=== PATIENT | female | born 1950 | race Caucasian/White ===

== ENCOUNTER 2018-03-09 04:59 | Outpatient (CLI) | payer MEDICARE | END 2018-03-09 23:59 | disposition home or self-care (01) | LOC: DIABETIC 04:59 | PROVIDERS: ATTEND Specialist | DX: E11.9 Type 2 diabetes mellitus without complications (principal) | CPT/HCPCS: G0108 ==

== ENCOUNTER 2018-04-18 01:51 | Outpatient (CLI) | payer MEDICARE | END 2018-04-18 23:59 | disposition home or self-care (01) | LOC: DIABETIC 01:51 | PROVIDERS: ATTEND Specialist | DX: E11.65 Type 2 diabetes mellitus with hyperglycemia (principal) | CPT/HCPCS: G0108 ==

== ENCOUNTER 2018-07-19 02:09 | Outpatient (CLI) | payer MEDICARE | END 2018-07-19 23:59 | disposition home or self-care (01) | LOC: DIABETIC 02:09 | PROVIDERS: ATTEND Specialist | DX: E11.65 Type 2 diabetes mellitus with hyperglycemia (principal); Z79.84 Long term (current) use of oral hypoglycemic drugs; Z79.899 Other long term (current) drug therapy; Z79.4 Long term (current) use of insulin; Z88.0 Allergy status to penicillin | CPT/HCPCS: G0108 ==

== ENCOUNTER 2018-10-04 01:32 | Outpatient (CLI) | payer MEDICARE | END 2018-10-04 23:59 | disposition home or self-care (01) | LOC: DIABETIC 01:32 | PROVIDERS: ATTEND Specialist | DX: E11.65 Type 2 diabetes mellitus with hyperglycemia (principal); Z79.84 Long term (current) use of oral hypoglycemic drugs; Z79.899 Other long term (current) drug therapy; Z79.4 Long term (current) use of insulin; Z88.0 Allergy status to penicillin | CPT/HCPCS: G0108 ==

== ENCOUNTER 2019-01-29 02:20 | Outpatient (CLI) | payer MEDICARE | END 2019-01-29 23:59 | disposition home or self-care (01) | LOC: DIABETIC 02:20 | PROVIDERS: ATTEND Specialist | DX: E11.65 Type 2 diabetes mellitus with hyperglycemia (principal); Z79.84 Long term (current) use of oral hypoglycemic drugs; Z79.899 Other long term (current) drug therapy; Z88.0 Allergy status to penicillin | CPT/HCPCS: G0108 ==

== ENCOUNTER 2019-05-21 04:52 | Outpatient (CLI) | payer MEDICARE, BC | END 2019-05-21 23:59 | disposition home or self-care (01) | LOC: DIABETIC 04:52 | PROVIDERS: ATTEND Specialist | DX: E11.65 Type 2 diabetes mellitus with hyperglycemia (principal); Z79.4 Long term (current) use of insulin; Z79.899 Other long term (current) drug therapy; Z88.0 Allergy status to penicillin | CPT/HCPCS: G0108 ==

== ENCOUNTER 2019-08-22 01:49 | Outpatient (CLI) | payer MEDICARE, BC | END 2019-08-22 23:59 | disposition home or self-care (01) | LOC: DIABETIC 01:49 | PROVIDERS: ATTEND Specialist | DX: E11.69 Type 2 diabetes mellitus with other specified complication (principal) | CPT/HCPCS: G0108 ==

== ENCOUNTER 2019-11-21 01:32 | Outpatient (CLI) | payer MEDICARE, BC | END 2019-11-21 23:59 | disposition home or self-care (01) | LOC: DIABETIC 01:32 | PROVIDERS: ATTEND Specialist | DX: E11.65 Type 2 diabetes mellitus with hyperglycemia (principal); Z79.4 Long term (current) use of insulin | CPT/HCPCS: G0108 ==

== ENCOUNTER 2022-04-08 09:42 | Day surgery (SDC) | payer MEDICARE, BC ==
[2022-04-08] VITALS (9 sets, daily range): BP systolic 120–153; BP diastolic 54–65
[~2022-04-08] VITALS: Ht 162.6 cm; Wt 84.5 kg
[2022-04-08] MEDS ORDERED: normal saline 1,000 ML IV SCH (10:00)
[2022-04-08] MEDS ORDERED: diphenhydrAMINE 25mg capsule PO PRN (10:00)
[2022-04-08] MEDS ORDERED: INSU200I SQ (10:16)
[2022-04-08] MEDS ORDERED: SPIR25TA5 PO (10:16)
[2022-04-08] MEDS ORDERED: ATOR40TA72 PO (10:16)
[2022-04-08] MEDS ORDERED: OMEP20CA16 PO (10:16)
[2022-04-08] MEDS ORDERED: FENO145T25 PO (10:16)
[2022-04-08] MEDS ORDERED: INSU200I4 SQ (10:16)
[2022-04-08] MEDS ORDERED: METF-900 PO (10:16)
[2022-04-08] MEDS ORDERED: BISO1TAB99 PO (10:16)
[2022-04-08] MEDS ORDERED: EZET10TA48 PO (10:16)
[2022-04-08] MEDS ORDERED: EMPA25TA PO (10:16)
[2022-04-08] MEDS ORDERED: MULT-1133 (10:19)
[2022-04-08] MEDS ORDERED: Vitamin D (10:19)
[2022-04-08] MEDS ORDERED: iohexol 350MG/ML 100ml bottle IV ONE (11:00)
[2022-04-08 11:02] LABS: ALBUMIN 4.4 G/DL (3.4-5.0); ANION GAP 12 (8-16); BASOPHILS % (AUTO) 0.3 % (0-1); BLOOD UREA NITROGEN 28 MG/DL (7-18); BUN/CREATININE RATIO 30.4 (6.6-38.0); CALCIUM 9.9 MG/DL (8.5-10.1); CHLORIDE 104 MMOL/L (99-107); CREATININE 0.92 MG/DL (0.40-0.90); EOSINOPHILS # (AUTO) 0.1 X10'3 (0-0.9); EOSINOPHILS % (AUTO) 0.9 % (0-6); GLUCOSE 142 MG/DL (70-104); HEMATOCRIT 46.4 % (35.0-45.0); HEMOGLOBIN 15.6 g/dl (12.0-16.0); LYMPHOCYTES # (AUTO) 2.1 X10'3 (1.1-4.8); LYMPHOCYTES % (AUTO) 24.8 % (21-51); MAGNESIUM 1.8 MG/DL (1.5-2.4); MEAN CORPUSCULAR HEMOGLOBIN 30.9 PG (27.0-31.0); MEAN CORPUSCULAR HGB CONC 33.5 g/dL (33.0-36.5); MEAN CORPUSCULAR VOLUME 92.3 FL (78-98); MONOCYTES # (AUTO) 0.7 X10'3 (0-0.9); NEUTROPHILS # (AUTO) 5.5 X10'3 (1.8-7.7); PLATELET COUNT 382 X10'3 (140-440); POTASSIUM 4.1 MMOL/L (3.5-5.1); RED BLOOD COUNT 5.03 X10'6 (4.20-5.60); RED CELL DISTRIBUTION WIDTH 13.1 % (11.5-14.5); SODIUM 142 MMOL/L (135-145); TOTAL CARBON DIOXIDE 25.9 MMOL/L (24-32); WHITE BLOOD COUNT 8.3 X10'3 (4.5-11.0); eGFR 60 ML/MIN
[2022-04-08] MEDS ORDERED: midazolam 1 mg/ML 2ml injection ONE ×2 (12:36→13:26)
[2022-04-08] MEDS ORDERED: fentaNYL/PF 50MCG/1 ML 2ML syringe ONE (12:36)
[2022-04-08] MEDS ORDERED: heparin 1,000unit/ml 10ml vial 10 ML ONE (12:36)
[2022-04-08] MEDS ORDERED: verapamil 2.5 mg/ml inj IV ONE (12:36)
[2022-04-08] MEDS ORDERED: LIDOcaine 1% 30ml preserv. free vial ONE (12:36)
[2022-04-08] MEDS ORDERED: nitroGLYCERIN-Tridil 50MG/D5W 250 ML IV ONE (12:36)
[2022-04-08] MEDS ORDERED: iohexol 350 MG/ML 50ML vial IV ONE (13:42)
[2022-04-08] MEDS ORDERED: ondansetron/PF 4mg/2ml inj IV PRN (15:15)
[2022-04-08] MEDS ORDERED: HYDROcodone/acetaminophen 10/325mg tab PO PRN (15:15)
[2022-04-08] MEDS ORDERED: proCHLORperazine 10 MG/2 ml inj IV PRN (15:15)
[2022-04-08] MEDS ORDERED: HYDROcodone/acetaminophen 5mg/325mg tablet PO PRN (15:15)
== END 2022-04-08 18:15 | disposition home or self-care (01) ==
LOC: SSTAY O 09:42
PROVIDERS: ATTEND Internal Medicine Cardiovascular Disease
DX: R94.39 Abnormal result of other cardiovascular function study (principal); R07.89 Other chest pain; I25.10 Atherosclerotic heart disease of native coronary artery without angina pectoris; E78.5 Hyperlipidemia, unspecified; E11.9 Type 2 diabetes mellitus without complications; E83.42 Hypomagnesemia; I10 Essential (primary) hypertension; Z79.4 Long term (current) use of insulin; Z79.899 Other long term (current) drug therapy; Z98.890 Other specified postprocedural states; Z90.710 Acquired absence of both cervix and uterus; Z88.0 Allergy status to penicillin; Z88.8 Allergy status to other drugs, medicaments and biological substances; Z82.49 Family history of ischemic heart disease and other diseases of the circulatory system; Z82.3 Family history of stroke
CPT/HCPCS: 36415; 80048; 82948; 83735; 85025; 85610; 93005; 93458; 99152; 99153; C1751; C1760; C1769; C1892; C1894; J1644; J2250; J3010; J3490; Q0163; Q9967; A4620; A5120; A6258; A6449

== ENCOUNTER 2025-07-14 06:32 | Day surgery (SDC) | payer MEDICARE, BC ==
[2025-07-14] VITALS (10 sets, daily range): BP systolic 107–149; BP diastolic 54–66; PULSE 60–100; RESP 12–17; TEMP 98.3; O2SAT 93–100
[~2025-07-14] VITALS: Ht 163.8 cm; Wt 70.4 kg
[~2025-07-14 06:32] MED LIST: ATOR40TA72 PO; BISO1TAB99 PO; EMPA25TA PO; EZET10TA48 PO; FENO145T25 PO; INSU200I SQ; INSU200I4 SQ; METF-900 PO; MULT-1133; OMEP20CA16 PO; SPIR25TA5 PO; Vitamin D
[2025-07-14] MEDS ORDERED: ROSU40TA89 PO (06:59)
[2025-07-14] MEDS ORDERED: SEMA1PEN3 SQ (07:02)
[2025-07-14] MEDS ORDERED: AVA100I (07:03)
[2025-07-14] MEDS ORDERED: ASPI-1264 PO (07:03)
[2025-07-14 07:23] LABS: MEAN PLATELET VOLUME 7.5 FL (7.4-10.4); RED CELL DISTRIBUTION WIDTH 13.9 % (11.5-14.5)
--- NOTE | 2025-07-14 07:32 | ELECTROCARDIOGRAPH REPORT ---
[facility] Test Date: 2025-07-14 Test Time: 07:30:36 Pat Name: REE WHITE Department: [facility] Patient ID: [facility]-[id number] Room: Gender: F Assistive Technology Specialist: SASKIA : 1950 Requested By: BILL MUÑOZ Order Number: [id number] Reading MD: Dr. COREEN Castro Measurements Intervals [place] Rate: 82 P: 38 MD: 185 QRS: -15 QRSD: 95 T: 27 QT: 402 QTc: 470 Interpretive Statements Sinus rhythm Inferior infarct, old Electronically Signed On 07-14-2025 19:24:[address] COREEN Castro Please click the below link to view image of tracing.
[2025-07-14 07:35] LABS: INR 1.1 INR
[2025-07-14 07:54] LABS: CREATININE 0.93 MG/DL (0.40-0.90); TOTAL CARBON DIOXIDE 25.0 MMOL/L (24-32); eCRCL 45 ML/MIN; eGFR 58 ML/MIN
[2025-07-14] MEDS: sodium bicarbonate 1meq/ml syr 150 ML in dextrose 5%-water 1,000 ML IV ONE (08:29)
[2025-07-14] MEDS ORDERED: verapamil 2.5 mg/ml inj IV ONE (08:54)
[2025-07-14] MEDS ORDERED: midazolam 1 mg/ML 2ml injection ONE (08:54)
[2025-07-14] MEDS ORDERED: heparin 1,000unit/ml 10ml vial 10 ML ONE (08:54)
[2025-07-14] MEDS ORDERED: iohexol 350 MG/ML 50ML vial IV ONE (08:54)
[2025-07-14] MEDS ORDERED: LIDOcaine 1% (10mg/ml) 2ml vial ONE (08:54)
[2025-07-14] MEDS ORDERED: fentaNYL/PF 50MCG/1 ML 2ML syringe ONE (08:54)
[2025-07-14] MEDS ORDERED: nitroGLYCERIN 500mcg/5mL D5W 0 ML IV ONE (08:55)
[2025-07-14] MEDS ORDERED: LIDOcaine 1% 30ml preserv. free vial ONE (09:28)
[2025-07-14] MEDS ORDERED: sodium bicarbonate 1meq/ml syr 150 ML in dextrose 5%-water 1,000 ML IV SCH (09:30)
[2025-07-14] MEDS ORDERED: RANO500T6 PO (10:52)
--- NOTE | 2025-07-14 13:07 | CARDIOLOGY REPORT ---
DATE OF SERVICE: 07/14/2025 DICTATING PHYSICIAN: BILL MUÑOZ DO CARDIAC CATHETERIZATION REPORT REFERRING MANAGER CONVENTION: Bill Muñoz DO CLINICAL HISTORY: This 75-year-old woman with known stable single-vessel (occluded RCA) coronary disease who has had an increase in her exertional angina in spite of being on a good medical regimen. An echocardiogram in October 2023 demonstrated moderate aortic stenosis. Given her known cardiac problems and the fact that there has been a decline in her threshold for onset of angina, a right and left heart catheterization has been ordered. PROCEDURES PERFORMED: * Right heart catheterization. * Left heart catheterization. * Left ventriculography. * Selective coronary arteriography. * Percutaneous arteriotomy closure (Mynx). * 30 minutes conscious sedation and supervision. DESCRIPTION OF PROCEDURE: The patient was sedated with fentanyl and Versed. She was then prepared and draped in the usual manner. The right cubital area was infiltrated with 1% lidocaine. Using a preplaced 18-gauge IV catheter, a 0.035 wire and a 6-English sheath were placed in the basilic vein. Then using a 6-English [place]-Darlene catheter, a right heart catheterization was performed. Cardiac output was determined using a thermodilution technique. Using the same Seldinger technique, a 7-English sheath was placed in the right common femoral artery. 3000 units of heparin were given. Left heart catheterization and left ventriculography were performed using a 6-English pigtail catheter. Coronary arteriography was performed using 6-English #4 left and right Talita catheters. Hemostasis of the arterial puncture site was achieved using a Mynx device. Direct pressure was applied to the cubital vein access. RESULTS: HEMODYNAMIC DATA: The mean right atrial pressure was 7 mmHg. Right ventricular end diastolic pressure was 8 mmHg. Mean pulmonary capillary wedge pressure was 6 mmHg. Left ventricular end diastolic pressure was 8 mmHg. Pulmonary artery arterial pressure was 22/9 mmHg. Cardiac output by thermodilution technique was 4.8 liters/min. There was a 41 mm gradient across the aortic valve. The calculated aortic valve area was 0.75 cm2. LEFT VENTRICULOGRAM: The left ventriculogram was technically satisfactory. The ejection fraction was estimated to be at least 75%. There was heavy mitral annular calcification and there was calcification to both the left and right coronary arteries. CORONARY ANGIOGRAPHY: LEFT MAIN CORONARY ARTERY: The left main was a large unobstructed vessel trifurcating into left anterior descending intermediate and circumflex coronary arteries. The distal left main was narrowed by about 20%-30%. LEFT ANTERIOR DESCENDING CORONARY ARTERY: The LAD was a medium-sized transapical vessel. There was a small proximal diagonal and a small but somewhat longer second diagonal, which took its origin from the mid LAD. The second diagonal contained a long area of stenosis estimated to be at least 60%. Both the diagonals were very small in caliber. There were no main stem LAD areas of stenosis. INTERMEDIATE ARTERY: The intermediate was a medium-sized unobstructed vessel. CIRCUMFLEX CORONARY ARTERY: The circumflex was a medium to large main stem vessel. There was a very small distal obtuse marginal branch and a similarly small posterolateral branch. There were no obstructive lesions in the circumflex coronary artery. RIGHT CORONARY ARTERY: The right coronary was totally occluded at its origin. There were faint "jump" collaterals filling the proximal vessel, but the filling exhibited very small caliber vessels probably because of difuse disease.. They also appeared to be diffusely . There was a total occlusion in the mid vessel overlying the acute marginal branch. There were very modest collaterals from the left coronary supplying what looks like a posterior descending branch of the right coronary, but no other distal branches were noted. CONCLUSIONS: * Normal pulmonary pressures. The pulmonary arterial pressure was 22/9 mmHg. * Severe aortic stenosis. The calculated aortic valve area was 0.75 cm2. * Left ventricular function was hyperdynamic. The ejection fraction was at least 75%. * Obstructive coronary disease principally manifested as a known old chronic mid occlusion of the right coronary. There was also what appeared to be a stenosis involving the origin of the second LAD diagonal, but it was a tiny vessel that was nowhere near suitable for an intervention. RECOMMENDATIONS: Ongoing medical therapy with consideration of TAVR. BILL MUÑOZ DO TID: [id number] RECEIPT: [id number] RADHA/ANIL/TRAV SIMPSON
== END 2025-07-14 13:50 | disposition home or self-care (01) ==
LOC: SSTAY O 06:32
PROVIDERS: ATTEND Internal Medicine Cardiovascular Disease
DX: R07.9 Chest pain, unspecified (principal); I25.118 Atherosclerotic heart disease of native coronary artery with other forms of angina pectoris; I25.2 Old myocardial infarction; E11.9 Type 2 diabetes mellitus without complications; E78.5 Hyperlipidemia, unspecified; Z79.890 Hormone replacement therapy; Z79.84 Long term (current) use of oral hypoglycemic drugs; Z79.899 Other long term (current) drug therapy; Z90.49 Acquired absence of other specified parts of digestive tract; Z90.89 Acquired absence of other organs; Z98.890 Other specified postprocedural states; Z88.0 Allergy status to penicillin; Z82.49 Family history of ischemic heart disease and other diseases of the circulatory system
CPT/HCPCS: 36415; 80053; 82948; 85025; 85610; 93005; 93460; 99152; 99153; C1725; C1751; C1894; J1644; J2003; J2250; J3010; J3490; J7030; J7070; Q0163; Q9967; Z7610

== ENCOUNTER 2025-08-05 08:18 | Outpatient (CLI) | payer MEDICARE, BC ==
[~2025-08-05 08:18] MED LIST changes: +ASPI-1264 PO; -ATOR40TA72 PO; +AVA100I; +RANO500T6 PO; +ROSU40TA89 PO; +SEMA1PEN3 SQ
[2025-08-05] MEDS ORDERED: IODIXANOL 320 MG/ML INFUS..BTL 100ML IV ONE (08:25)
[2025-08-05 08:48] LABS: MEAN PLATELET VOLUME 7.2 FL (7.4-10.4); RED CELL DISTRIBUTION WIDTH 14.2 % (11.5-14.5)
[2025-08-05 09:02] LABS: APTT 23 SECONDS (22-32); INR 1.1 INR
[2025-08-05 09:15] LABS: CREATININE 0.94 MG/DL (0.40-0.90); PRO BRAIN NATRIURETIC PEPTIDE 260 PG/ML (0-450); TOTAL CARBON DIOXIDE 28.4 MMOL/L (24-32); eGFR 58 ML/MIN
--- NOTE | 2025-08-05 09:42 | RADIOLOGY REPORT ---
DI CHEST,TWO VIEWS, HISTORY: AV STENOSIS,SOB,CAROTID STENOSIS COMPARISON: CHEST,SINGLE VIEW on DOS: 05/27/22 CHEST,SINGLE VIEW on DOS: 05/27/22 TECHNICAL DATA: 2 view of the chest was obtained. FINDINGS: Lines and tubes: None Cardiomediastinal silhouette: normal Pulmonary vasculature: normal Lung expansion: normal Lung airspace: normal Lung interstitium: normal Pleura: normal Pneumothorax: no Bones: Unremarkable Other: no IMPRESSION: No acute intrathoracic abnormality.
--- NOTE | 2025-08-05 11:47 | VASCULAR REPORT ---
CLINICAL HISTORY: Preoperative exam, TAVR. TECHNIQUE: Arias-scale, Color and Duplex Doppler imaging of the bilateral carotid systems was performed. COMPARISON: None Findings: Right Carotid system: There is plaque present in the right carotid system. Left Carotid system: There is plaque present in the left carotid system. The following flow velocities were obtained (cm/sec). Right Carotid System: ICA PSV: 100 cm/sec ICA PDV: 27 cm/sec ICA/CCA Ratio: 1.5 Left Carotid System: ICA PSV: 105 cm/sec ICA PDV: 29 cm/sec ICA/CCA Ratio: 1.4 The right and left common carotid and external carotid arteries are patent. There is antegrade flow in both vertebral arteries and external carotid arteries. IMPRESSION: LESS THAN 50% RIGHT ICA NARROWING. LESS THAN 50% LEFT ICA NARROWING. Estimation of carotid stenosis is based on velocity parameters that correlate the residual internal carotid diameter with that of the more distal vessel in accordance with the [place] Symptomatic Carotid Endarterectomy Trial (NASCET).
--- NOTE | 2025-08-06 18:45 | CARDIOLOGY REPORT ---
APPROVED REPORT EXAM: Limited 2D, Doppler, and color-flow Echocardiogram. Patient Location: OUT-PATIENT Blood Pressure: 124 / 44 mmHg Heart Rate: 77 bpm Rhythm: SINUS Indications REASSESS AORTIC STENOSIS PRE-TAVR ASSESSMENT NON-OBSTRUCTIVE CORONARY DISEASE DIABETES Urology Physician Assistant: Marc MUÑOZ DO Previous echo: 07/01/25 [facility] PK EF: 65%; njlLV; nlRV; sevAS (HALLE:0.8; PKV: NR, GRAD: 45/); trivMR; trTR; 07/14/25 [facility] CATH: EF: 75%; MEAN GRAD: 41; HALLE 0.75CMSQ 2D Dimensions LVOT Diameter 2.00 (1.8-2.4cm) M-Mode Dimensions Left Atrium(MM) 4.77 (2.5-4.0cm) Aortic Root 3.08 (2.2-3.7cm) Aortic Cusp Exc 1.10 (1.5-2.0cm) Aortic Valve AoV Peak Stanford. 409.4 cm/s AoV VTI 95.7 cm AO Peak GR. 64.6 mmHg AO Mean GR. 41 mmHg LVOT VTI 26.90 cm LVOT Peak Stanford. 104.3 cm/s HALLE (VMAX) 0.80 cm2 HALLE (VTI) 0.88 cm2 AV DI 0.20 % Mitral Valve MV Peak Gr. 13 mmHg MV A Velocity 182.0 cm/s MV Mean Gr. 5 mmHg Tricuspid Valve TR P. Velocity 233 cm/s RAP ESTIMATE 10 mmHg TR Peak Gr. 22 mmHg RVSP 32 mmHg LEFT VENTRICLE Normal LV size and function. Mild concentric hypertrophy. LVEF is 65%. RIGHT VENTRICLE RV is normal size and function. ATRIA Left atrium is moderately dilated. AORTIC VALVE Trileaflet AV appears heavily calcified with significant stenosis demonstrated by reduced excursion and increased transvalvular and ascending aorta turbulance. HALLE: 0.8 cmsq; Pkv: 4.09 m/sec; Gradients: 65 / 41 mmHG. Trivial insufficiency. MITRAL VALVE Moderate MV annular calcification with probable mild stenosis. MV gradients: 13/5mmHG. Trivial regurgitation. Valve not comprehensively assessed due to focused exam. TRICUSPID VALVE TV appears structurally normal with trivial regurgitation. PULMONIC VALVE Normal PV without stenosis, physiologic insufficiency. GREAT VESSELS Aortic root is normal in size. Normal appearing arch with increased, turbulent flow velocities. Ascending aorta is normal in size. PERICARDIUM Normal pericardium. No effusion. Other Information Study Quality: Adequate, but difficult to assess Conclusion Normal LV size and function. Mild concentric hypertrophy. LVEF is 65%. RV is normal size and function. Left atrium is moderately dilated. Trileaflet AV appears heavily calcified with significant stenosis demonstrated by reduced excursion and increased transvalvular and ascending aorta turbulance. HALLE: 0.8 cmsq; Pkv: 4.09 m/sec; Gradients: 65 / 41 mmHG. Trivial insufficiency. Moderate MV annular calcification with probable mild stenosis. MV gradients: 13/5mmHG. Trivial regurgitation. Valve not comprehensively assessed due to focused exam. TV appears structurally normal with trivial regurgitation. Normal pericardium. No effusion.
--- NOTE | 2025-08-07 13:40 | RADIOLOGY REPORT ---
Procedure: CT CTA TAVR Reason for study/Clinical History: AV STENOSIS Comparison Study: none Exam Date: 08/05/2025 12:05 PM TECHNIQUE: Multiplanar reformatted images were generated from volumetric data acquired on a multidetector CT scanner. Cardiac gating was utilized. Arterial phase images were obtained through the chest, abdomen and pelvis following intravenous administration of contrast material. 100 mL Omnipaque [address] dose reduction techniques were utilized. 3-D reconstructions were performed on an independent workstation. FINDINGS: Vascular: Aortic measurements: Aortic annulus: 22.7 x 20.8 mm Sinus of valsalva: right cusp 34.1 mm, left cusp 32.7 mm, non-coronary cusp 32.5 mm Right coronary distance: 14.4 Left coronary distance: 14.9 ST junction 28.3 mm Ascending aorta 32.9 mm Aortic arch 21.7 mm Descending aorta 22.4 mm Minimal abdominal aorta 10.1 mm Right common iliac 6.1 mm, tortuosity index 1.03 Left common iliac 7.4 mm, tortuosity index 1.07 There is normal caliber of aorta. No aortic dissection. Aortic arch anatomy is conventional. Eccentric plaque is present throughout the aorta. No exophytic calcified or soft plaque. No central pulmonary embolism. There is normal dimension of the main pulmonary artery. Heart is borderline enlarged. There are no intracardiac filling defects. No pericardial effusion. Moderate mitral annular calcification. Mediastinum: There is no significant intrathoracic or axillary lymphadenopathy by CT size criteria. Small hiatal hernia. Lungs: Expiratory phase appearance of the trachea. Respiratory motion artifact limits assessment of the lungs. Hypoventilatory changes. A 3 mm nodule is identified within the subpleural right lower lobe. Pleura: No effusion or pneumothorax. Chest wall: No acute abnormality. Abdomen and Pelvis: Liver: Normal in appearance. Gallbladder: Layering stones are identified within the gallbladder. Spleen: Normal in appearance. Pancreas: Normal in appearance. Adrenals: Normal in appearance. Kidneys: Symmetric enhancement with corticomedullary phase differentiation which limits assessment for renal neoplasm. Bowel: Diverticulosis of the colon. No CT findings of bowel obstruction. Assessment of bowel is limited without oral contrast material. Peritoneum: No free air or free fluid. Lymph nodes: No lymphadenopathy by CT size criteria. Pelvic structures: Uterus is absent. No adnexal mass. Bones: No aggressive appearing osseous lesions. IMPRESSION: 1. TAVR planning with vascular measurements as described above. 2. No exophytic calcified or soft plaque of the aorta. 3. A 3 mm nodule is identified within the subpleural right lower lobe. If the patient has a smoking history or family history of lung cancer, a follow-up CT chest in 12 months can be considered. 4. Cholelithiasis.
== END 2025-08-05 23:59 | disposition home or self-care (01) ==
LOC: RAD 08:18
PROVIDERS: ATTEND Internal Medicine Cardiovascular Disease
DX: I35.0 Nonrheumatic aortic (valve) stenosis (principal); I65.23 Occlusion and stenosis of bilateral carotid arteries; I25.10 Atherosclerotic heart disease of native coronary artery without angina pectoris; R06.02 Shortness of breath; K44.9 Diaphragmatic hernia without obstruction or gangrene; K57.30 Diverticulosis of large intestine without perforation or abscess without bleeding; R91.1 Solitary pulmonary nodule; E11.9 Type 2 diabetes mellitus without complications; Z90.710 Acquired absence of both cervix and uterus
CPT/HCPCS: 36415; 71046; 71275; 74174; 75572; 80053; 83880; 85025; 85610; 85730; 93308; 93880; Q9967

== ENCOUNTER 2025-10-06 10:25 | Outpatient (CLI) | payer MEDICARE, BC ==
[~2025-10-06 10:25] MED LIST changes: -ASPI-1264 PO; +ASPI-611 PO; -AVA100I; +AVA100I INJ; -BISO1TAB99 PO; +CHOL50004 PO; -EZET10TA48 PO; +EZET10TA80 PO; +LEVO25TA7 PO; +MAGN100T PO; -MULT-1133; +MULT-1133 PO; -SPIR25TA5 PO; +UBID10CA4 PO; +VIT1CAPS46 PO; +VITA1CAP PO; -Vitamin D
--- NOTE | 2025-10-06 14:40 | ELECTROCARDIOGRAPH REPORT ---
[facility] Test Date: 2025-10-06 Test Time: 10:38:34 Pat Name: REE WHITE Department: PRE/OP CARDIOLOGY Room: Gender: F Blintze Roller: ANURADHA : 1950 Requested By: ELIA STALLWORTH Order Number: [id number] Reading MD: Dr. COREEN Castro Measurements Intervals [place] Rate: 93 P: 59 MD: 194 QRS: -14 QRSD: 148 T: 40 QT: 417 QTc: 519 Interpretive Statements Sinus rhythm Left bundle branch block Electronically Signed On 10-06-2025 17:34:[address] COREEN Castro Please click the below link to view image of tracing.
--- NOTE | 2025-10-06 16:31 | CARDIOLOGY REPORT ---
APPROVED REPORT EXAM: Limited 2D, Doppler, and color-flow Echocardiogram. Patient Location: OUT-PATIENT Blood Pressure: 111/55 mmHg Heart Rate: 96 bpm Rhythm: SINUS w/BBB Indications ONE MONTH FOLLOW-UP TAVR 26 mm Chong Guevara 3 Ultra RESILIA Bioprosthetic TAVR Incising Machine Operator: Marc Nino DO Previous echo 09/11/25 [facility] EF 70-75%; HALLE 3.56; Peak v 1.60 m/s; Grad 10/6 mmHg; trace MR; trace TR 2D Dimensions RVDd 2.7 cm IVSd 1.2 (0.7-1.1cm) LVDd 4.4 cm LA Minor 3.7 cm PWd 1.2 (0.7-1.1cm) IVSs 1.2 (0.8-1.2cm) LVDs 3.7 (2.5-4.0cm) PWs 1.6 (0.8-1.2cm) LVOT Diameter 2.61 (1.8-2.4cm) LVEF(%) 40.0 (>50%) Aortic Valve AoV Peak Stanford. 198.6 cm/s AoV VTI 36.4 cm AO Peak GR. 15.8 mmHg AO Mean GR. 9 mmHg LVOT VTI 25.02 cm LVOT Peak Stanford. 133.7 cm/s HALLE (VMAX) 3.61 cm2 HALLE (VTI) 3.50 cm2 Mitral Valve MV Peak Gr. 19 mmHg MV Mean Gr. 7 mmHg MVA (PHT) 2.25 cm2 MV VMax 2.2 cm/s MV VMean 120.4 cm/s MV VTI 37.1 cm LEFT VENTRICLE Normal LV size and low normal function. Mild concentric hypertrophy. Abnormal septal motion, changed from exam on 09/11/25. LVEF is 55%. RIGHT VENTRICLE RV is normal size and function. ATRIA LA appears mildly dilated. AORTIC VALVE 26 mm Chong Guevara 3 Ultra Resilia bioprosthetic TAVR appears well seated with normal function. Trace paravalvular leak, best visualized in apical 5 chamber. HALLE is measured at 3.55 cmsq. Peak / mean gradients of 15 / 9 mmHG. Peak velocity is measured at 1.98 m/sec. MITRAL VALVE Moderate MV apparatus calcification. MVA: 2.25 cmsq; Pkv: 2.20 m/sec; TRICUSPID VALVE TV appears structurally normal with trace regurgitation. GREAT VESSELS Aortic root is normal in size. PERICARDIUM Prominent epicardial fat pad and trace anterior pericardial effusion without hemodynamic compromise. Unchanged from 09/11/25 exam. Other Information Study Quality: Adequate
== END 2025-10-06 23:59 | disposition home or self-care (01) ==
LOC: CARD DIAG 10:25
PROVIDERS: ATTEND Internal Medicine Cardiovascular Disease
DX: Z48.812 Encounter for surgical aftercare following surgery on the circulatory system (principal); I34.81 Nonrheumatic mitral (valve) annulus calcification; Z95.2 Presence of prosthetic heart valve; I44.7 Left bundle-branch block, unspecified; Z98.890 Other specified postprocedural states
CPT/HCPCS: 93005; 93308